=== PATIENT | female | born 1980 | race African-American/Black ===

== ENCOUNTER 2021-07-24 12:52 | Emergency (ER) | payer OTHER, SELFPAY ==
[2021-07-24] VITALS (55 sets, daily range): BP systolic 116–180; BP diastolic 73–117; PULSE 40–103; RESP 9–34; TEMP 36.8–37.1; O2SAT 91–100
--- NOTE | 2021-07-24 13:15 | RT.EKG_ITS ---
APPROVED REPORT Exam: Resting ECG Reason for Exam: dizzy Patient Location: E HR:72 bpm ECG Measurements Heart Rate 72 AXIS LA 146 P 45 QRSd 84 QRS 28 QT 366 T 24 QTc 400 Conclusion Sinus rhythm...normal P axis, V-rate 60- 99 Low voltage, precordial leads...precordial leads <1.0mV
[2021-07-24] MEDS: Normal Saline 1,000 ML 1000 ML IV (14:02)
[2021-07-24 14:21] LABS: Abs Immature Grans 0.01 10^3/uL (0.0-0.06); Absolute Basophil Count 0.01 10^3/uL (0.0-0.2); Absolute Lymphocyte Count 1.31 10^3/uL (1.2-3.4); Absolute Monocyte Count 0.26 10^3/uL (0.1-0.8); Absolute Neutrophil Count 3.98 10^3/uL (1.2-6.7); Basophils % 0.2; HCT 38.8 % (36.0-46.0); HGB 12.3 g/dL (11.2-15.7); Immature Grans % 0.2; Lymphocytes % 23.5; MCH 26.2 pg (27.0-33.0); MCHC 31.7 % (32.0-36.0); MCV 82.6 fL (80-95); MPV 10.6 fL (8.0-11.0); Monocytes % 4.7; Neutrophils % 71.4; Nucleated RBC 0 %; Platelet Count 318 10^3/uL (130-400); RDW 13.9 % (11.7-14.6); RDW-SD 41.7 fL; WBC 5.57 10^3/uL (4.4-10.8)
[2021-07-24 14:28] LABS: Bilirubin Negative (Negative); Blood Large (Negative); Clarity Cloudy (Clear); Glucose Negative (Negative); Ketones Negative (Negative); Leukocyte Esterase Negative (Negative); Nitrite Negative (Negative); Specific Gravity 1.025 (1.005-1.025); Urobilinogen 0.2 EU/dL (Up TO 0.2); pH 5.5 (5-8)
[2021-07-24 14:36] LABS: PTT Activated 22.2 sec (21.0-27.5); Prothrombin Time 10.3 sec (9.3-11.0)
--- NOTE | 2021-07-24 14:36 | ED.GENADUL_ITS ---
Discharge Plan Disposition Patient Disposition: AGAINST MEDICAL ADVICE Condition: Stable Discharge Details Clinical Impression: Syncope Primary Care Provider: [facility] Provider: Libia Monzon Home Meds and New Rx's Prescriptions: Continued quetiapine [Seroquel] 300 mg Tablet 300 mg PO BID RF: 0 oxcarbazepine 300 mg Tablet 600 mg PO BID RF: 0 buspirone 10 mg Tablet PO DAILY RF: 0 escitalopram oxalate 20 mg Tablet 20 mg PO DAILY RF: 0 cyclobenzaprine 5 mg Tablet 5 mg PO PRN PRNRF: 0 duloxetine [Cymbalta] 20 mg Capsule,Delayed Release(Dr/Ec) 20 mg PO DAILY RF: 0 Discharge Instructions Instructions: Syncope (ED) Additional Instructions: You are leaving against our medical recommendation, please know that you are further deterioration and even Please do not operate your vehicle until you are reevaluated by your doctor or another emergency room Discharge Data Discharge Date/Time-TO BE ENTERED AT DEPARTURE: 07/24/21 21:27 Medical Decision Making <HUNTER Correa - Last Filed: 07/25/21 16:18> 41-year-old female with past medical history of anxiety, depression, anemia, asthma, fibromyalgia, presenting to the ER today for evaluation reporting diffuse body pain consistent with her fibromyalgia and syncopal episodes today x3. Clinically she appears well, nontoxic, hemodynamically stable and neurologically intact she denies any headache. I see no clear indication for emergent CT imaging of the brain. Given her presentation, will obtain IV access and obtain a cardiac work-up including a D-dimer. Will hydrate with 1 L IV fluid and if her chemistries are unremarkable will provide IV Toradol and Norflex. Given her syncopal episodes, we discussed her ER course including observation and at minimum a delta troponin. Patient may require treatment based upon her laboratory findings. Given her syncope time 3 and weakness, she may require admission if she continues to be symptomatic otherwise she may require very close outpatient follow-up. Initial laboratory values do not reveal any obvious emergent process. Patient given IV Norflex and Toradol. Patient is agreeable to awaiting a delta troponin. Patient remained hemodynamically stable. Patient states that when she stood for the chest x-ray she did feel some generalized weakness. Patient also tells me that she is scheduled to be seen by a pain specialist next month for her ongoing chronic pain. Patient reporting only minimal improvement after the IV Norflex and Toradol. Patient will be given another liter of IV fluid. Imaging Data Radiologic Study: Attestation: I personally reviewed and interpreted this imaging study as follows: Imaging: X-Ray Radiologist's impression: EXAM XR CHEST 2V PA LATERAL CLINICAL HISTORY syncope TECHNIQUE 2D digital imaging was performed of the chest. [Two] images were obtained. [PA and lateral][][] views were obtained. COMPARISON [No exams were available for comparison] [] FINDINGS MEDIASTINUM: [Normal.] [] HEART: [Normal.] [] PULMONARY VASCULATURE: [Normal.] [] LUNGS: [Clear.] [] PLEURAL SPACE: [No pleural effusion or pneumothorax.] [] BONE:[Within normal limits for the patient's age.] [] OTHER FINDINGS:[Normal.] [] IMPRESSION [No acute pulmonary findings. Lab Data Lab results reviewed: Yes I reviewed the patient's lab results. Labs: Laboratory Tests Range/Units 07/24/21 07/24/21 07/24/21 13:57 13:57 13:57 WBC (4.4-10.8) 10^3/uL 5.57 RBC (3.93-5.22) 10^6/uL 4.70 Hgb (11.2-15.7) g/dL 12.3 Hct (36.0-46.0) % 38.8 MCV (80-95) fL 82.6 MCH (27.0-33.0) pg 26.2 L MCHC (32.0-36.0) % 31.7 L RDW (11.7-14.6) % 13.9 Plt Count (130-400) 10^3/uL 318 MPV (8.0-11.0) fL 10.6 Immature Gran % 0.2 Neutrophils % 71.4 Lymphocytes % 23.5 Monocytes % 4.7 Eosinophils % 0.0 Basophils % 0.2 Nucleated RBC % % 0 Absolute Neutrophils (1.2-6.7) 10^3/uL 3.98 Absolute Lymphocytes (1.2-3.4) 10^3/uL 1.31 Absolute Monocytes (0.1-0.8) 10^3/uL 0.26 Absolute Eosinophils (0.0-0.7) 10^3/uL 0.00 Absolute Basophils (0.0-0.2) 10^3/uL 0.01 PT (9.3-11.0) sec 10.3 INR (0.9-1.1) 1.0 APTT (21.0-27.5) sec 22.2 D-Dimer (<500) ng/mlFEU 201 Sodium (136-145) mmol/L 142 Potassium (3.5-5.1) mmol/L 3.5 Chloride (98-107) mmol/L 107 Carbon Dioxide (21.0-32.0) mmol/L 23.6 Anion Gap (3-11) mmol/L 11.4 H BUN (7-18) mg/dL 9 Creatinine (0.55-1.02) mg/dL 1.3 H Estimated GFR/1.73 m2 (mL/min/1.73m2) 45.14 Glucose (74-106) mg/dL 106 Calcium (8.5-10.1) mg/dL 9.3 Magnesium (1.8-2.4) mg/dL 2.2 Total Bilirubin (0.2-1.0) mg/dL 0.2 AST (15-37) U/L 7 L ALT (14-59) U/L 13 L Alkaline Phosphatase (46-116) U/L 60 Troponin I (<0.06) ng/mL < 0.05 Total Protein (6.4-8.2) g/dL 7.7 Albumin (3.4-5.0) g/dL 3.8 TSH (0.36-3.74) uIU/mL 0.78 Urine Color (Yellow) Urine Clarity (Clear) Urine pH (5-8) Ur Specific [place] (1.005-1.025) Urine Protein (Negative) mg/dL Urine Ketones (Negative) mg/dL Urine Blood (Negative) Urine Nitrite (Negative) Urine Bilirubin (Negative) Urine Urobilinogen (Up TO 0.2) EU/dL Ur Leukocyte Esterase (Negative) Urine RBC (0-2) HPF Urine WBC (0-5) HPF Ur Epithelial Cells (Negative) HPF Urine Crystals (Negative) HPF Urine Bacteria (Negative) HPF Urine Casts (Negative) LPF Urine Mucus (Negative) Urine Other (Negative) Ur Culture Indicated? Urine Glucose (Negative) mg/dL Urine Opiates Screen (Negative) Urine Methadone Screen (Negative) Ur Barbiturates Screen (Negative) Ur Tricyclics Screen (Negative) Ur Amphetamines Screen (Negative) U Benzodiazepines Scrn (Negative) Urine Cocaine Screen (Negative) Ur THC Screen (Negative) Range/Units 07/24/21 07/24/21 14:10 14:10 WBC (4.4-10.8) 10^3/uL RBC (3.93-5.22) 10^6/uL Hgb (11.2-15.7) g/dL Hct (36.0-46.0) % MCV (80-95) fL MCH (27.0-33.0) pg MCHC (32.0-36.0) % RDW (11.7-14.6) % Plt Count (130-400) 10^3/uL MPV (8.0-11.0) fL Immature Gran % Neutrophils % Lymphocytes % Monocytes % Eosinophils % Basophils % Nucleated RBC % % Absolute Neutrophils (1.2-6.7) 10^3/uL Absolute Lymphocytes (1.2-3.4) 10^3/uL Absolute Monocytes (0.1-0.8) 10^3/uL Absolute Eosinophils (0.0-0.7) 10^3/uL Absolute Basophils (0.0-0.2) 10^3/uL PT (9.3-11.0) sec INR (0.9-1.1) APTT (21.0-27.5) sec D-Dimer (<500) ng/mlFEU Sodium (136-145) mmol/L Potassium (3.5-5.1) mmol/L Chloride (98-107) mmol/L Carbon Dioxide (21.0-32.0) mmol/L Anion Gap (3-11) mmol/L BUN (7-18) mg/dL Creatinine (0.55-1.02) mg/dL Estimated GFR/1.73 m2 (mL/min/1.73m2) Glucose (74-106) mg/dL Calcium (8.5-10.1) mg/dL Magnesium (1.8-2.4) mg/dL Total Bilirubin (0.2-1.0) mg/dL AST (15-37) U/L ALT (14-59) U/L Alkaline Phosphatase (46-116) U/L Troponin I (<0.06) ng/mL Total Protein (6.4-8.2) g/dL Albumin (3.4-5.0) g/dL TSH (0.36-3.74) uIU/mL Urine Color (Yellow) Yellow Urine Clarity (Clear) Cloudy Urine pH (5-8) 5.5 Ur Specific [place] (1.005-1.025) 1.025 Urine Protein (Negative) mg/dL Negative Urine Ketones (Negative) mg/dL Negative Urine Blood (Negative) Large H Urine Nitrite (Negative) Negative Urine Bilirubin (Negative) Negative Urine Urobilinogen (Up TO 0.2) EU/dL 0.2 Ur Leukocyte Esterase (Negative) Negative Urine RBC (0-2) HPF >50 H Urine WBC (0-5) HPF 0-2 Ur Epithelial Cells (Negative) HPF Moderate Urine Crystals (Negative) HPF Negative Urine Bacteria (Negative) HPF Rare Urine Casts (Negative) LPF Negative Urine Mucus (Negative) Negative Urine Other (Negative) Negative Ur Culture Indicated? No Urine Glucose (Negative) mg/dL Negative Urine Opiates Screen (Negative) Negative Urine Methadone Screen (Negative) Negative Ur Barbiturates Screen (Negative) Negative Ur Tricyclics Screen (Negative) Negative Ur Amphetamines Screen (Negative) Negative U Benzodiazepines Scrn (Negative) Negative Urine Cocaine Screen (Negative) Negative Ur THC Screen (Negative) Positive A ECG Data Attestation: I personally reviewed and interpreted this ECG (s) as follows: Interpretation: Please see official report by Dr. Boo. Sinus rhythm, ventricular rate 72. No STEMI <HUNTER Hoyt - Last Filed: 07/24/21 23:10> Patient care was transitioned to wv by Andrei Gracia physician visitor information assistant at 1600 Patient was assessed, calm, cooperative, slightly bradycardic but asymptomatic with this finding I reviewed her diagnostic labs that do not show acute abnormality including a negative D-dimer and chemistry panel, negative , negative chest x-ray, EKG without QTC prolongation I did perform orthostatics which were negative although patient was symptomatic standing Concern regarding her presentation, she has had 3 episodes of syncope in a short period of time and she is still symptomatic, my recommendation is to admit patient for observation Unfortunately patient is declining admission at this time after initially stating that she was willing to be observed She is aware that she is leaving against our medical recommendation and is at risk for further deterioration and even She did not have any ominous findings on her telemetry monitoring throughout this encounter She is alert, oriented, of decisional capacity throughout the entirety of this assessment Discharged home in the care of her with medical recommendation She [facility] and be reassessed in the emergency room should she have persistent or worsening symptom HPI <HUNTER Correa - Last Filed: 07/25/21 16:18> General Mode of arrival: ambulatory . Date/Time Provider Initiated Documentation: 07/24/21 13:13 . Limitations to Documentation: no limitations . Information obtained by: patient . HPI Narrative: This is a 41-year-old female, past medical history of asthma, anemia, depression, fibromyalgia, recently moved here from [place], no local primary care provider yet, presenting to the ER for evaluation of diffuse body pain and syncopal episode today x3. Patient states last night overall she felt warm. This morning and had generalized weakness. While in the shower this morning she states she had a syncopal episode, but did not sustain any injuries. Her picked her up and brought her to the bed where she states that she had another syncopal episode. And then later while she was trying to get ready to go to work getting her close on had a third syncopal episode. Unsure exactly how long any of these lasted for. She denies recent illness or trauma, headache, visual changes, neck pain, chest pain, shortness of breath abdominal pain, nausea, vomiting, diarrhea, dysuria, numbness, tingling, focal weakness. Has not taken any medications for her symptoms. Patient does state that she ran out of her Cymbalta approximately 3 weeks ago. She also has run out of her Flexeril that she typically takes for her fibromyalgia. She also tells me that she only takes her Seroquel very sporadically. She is scheduled to be seen by a pain specialist next month for her ongoing body pain and fibromyalgia. Related Data Home Medications Medication Instructions Recorded Confirmed buspirone mg PO DAILY 07/24/21 cyclobenzaprine 5 mg PO PRN PRN 07/24/21 07/24/21 duloxetine [Cymbalta] 20 mg PO DAILY 07/24/21 07/24/21 escitalopram oxalate 20 mg PO DAILY 07/24/21 07/24/21 oxcarbazepine 600 mg PO BID 07/24/21 07/24/21 quetiapine [Seroquel] 300 mg PO BID 07/24/21 07/24/21 Allergies Allergy/AdvReac Type Severity Reaction Status Date / Time No Known Allergies Allergy Unverified 07/24/21 13:09 General Stated Complaint: Dizzy/Sync RADHA: 3 Review of Systems <HUNTER Correa - Last Filed: 07/25/21 16:18> Constitutional Constitutional: Denies fatigue, Denies fever(s) and Denies headache(s) Eyes Eyes: Denies change in vision ENT Ears, Nose, Mouth, and Throat: Denies headache(s) and Denies neck pain Cardiovascular Cardiovascular: Denies chest pain and Denies dyspnea Respiratory Respiratory: Denies dyspnea Gastrointestinal Gastrointestinal: Denies abdominal pain, Denies nausea and Denies vomiting Genitourinary Genitourinary: Denies dysuria Musculoskeletal Musculoskeletal: Reports back pain, Denies neck pain, Denies numbness and Denies tingling Integumentary/Breasts Skin/Breast: Denies rash Neurologic Neurologic: Denies headache(s), Denies numbness, Denies tingling and Reports weakness (Generalized) Endocrine Endocrine: Denies fatigue PFSH <HUNTER Correa - Last Filed: 07/25/21 16:18> Active Problem List (Updated 07/24/21 @ 21:00 by HUNTER Hoyt) Syncope (Chronic) Social History Smoking/Tobacco Use Status: Never Smoking risk assessment performed?: Yes Drug use: Occasionally Substance use type: marijuana Do you feel safe at home: Yes Do you feel safe in your relationship?: Yes Exam <HUNTER Correa - Last Filed: 07/25/21 16:18> Const General: cooperative, healthy appearing, comfortable and no acute distress Orientation: alert, awake and oriented x3 HENMT Head: normal to inspection, normocephalic and atraumatic Mouth: moist mucous membranes abnormal (Slightly dry) Throat: posterior oropharynx normal Eyes General: appearance normal, both eyes and all related structures Alignment and Position: alignment normal Periorbital: periorbital findings normal Eyelids: eyelids normal Conjunctivae: conjunctivae normal Sclera: sclerae normal Cornea: corneas normal Pupils: PERRL EOM: EOM intact bilaterally Direct ophthalmoscopy: normal light reflex Neck Neck: normal visual inspection, full ROM, no meningeal signs, trachea midline and supple Resp Effort & Inspection: normal respiratory effort and able to speak in complete sentences Auscultation: clear to auscultation bilaterally Cardio Rate: regular rate Rhythm: regular rhythm GI Palpation: soft and nontender Back/Spine/Pelvis Back: no CVA tenderness and back tenderness (Diffuse, mild. No spasm) Skin General skin exam: no rashes or lesions noted Neuro General: patient alert, patient awake, patient oriented x3, moves all extremities and no focal motor deficits Cognition: normal cognition Speech: speech normal Motor: muscle tone normal throughout Sensory Exam: no sensory deficits noted Extrem General: normal to inspection, full ROM, capillary refill normal, no pedal edema, no calf tenderness and normal gait Psych Appearance: grossly normal Mental Status: mental status grossly normal Course <HUNTER Correa - Last Filed: 07/25/21 16:18> Vital Signs Vital signs: Vital Signs Temperature 37.1 C 07/24/21 13:04 Pulse 85 07/24/21 13:04 Respiratory Rate 18 07/24/21 13:04 Blood Pressure 116/73 07/24/21 13:04 Pulse Oximetry 99 07/24/21 13:04 Temperature 37.1 C 07/24/21 13:04 Temperature Source Temporal Artery Scan 07/24/21 13:04 Pulse 69 07/24/21 14:16 Pulse 74 07/24/21 14:16 Respiratory Rate 27 H 07/24/21 14:16 Respiratory Effort 07/24/21 13:24 Respiratory Depth Normal 07/24/21 13:24 Respiratory Pattern Normal 07/24/21 13:24 Blood Pressure 133/99 H 07/24/21 14:16 Blood Pressure Mean 106 07/24/21 14:16 Blood Pressure Position Sitting 07/24/21 13:04 Pulse Oximetry 96 07/24/21 14:01 Oxygen Delivery Method Room Air 07/24/21 13:04 Oxygen Flow Rate 0 07/24/21 13:04 Pain Level 9 07/24/21 13:04 Lab/Test Results Lab/Test Results: Laboratory Tests Range/Units 07/24/21 07/24/21 13:57 14:10 WBC (4.4-10.8) 10^3/uL 5.57 RBC (3.93-5.22) 10^6/uL 4.70 Hgb (11.2-15.7) g/dL 12.3 Hct (36.0-46.0) % 38.8 MCV (80-95) fL 82.6 MCH (27.0-33.0) pg 26.2 L MCHC (32.0-36.0) % 31.7 L RDW (11.7-14.6) % 13.9 Plt Count (130-400) 10^3/uL 318 MPV (8.0-11.0) fL 10.6 Immature Gran % 0.2 Neutrophils % 71.4 Lymphocytes % 23.5 Monocytes % 4.7 Eosinophils % 0.0 Basophils % 0.2 Nucleated RBC % % 0 Absolute Neutrophils (1.2-6.7) 10^3/uL 3.98 Absolute Lymphocytes (1.2-3.4) 10^3/uL 1.31 Absolute Monocytes (0.1-0.8) 10^3/uL 0.26 Absolute Eosinophils (0.0-0.7) 10^3/uL 0.00 Absolute Basophils (0.0-0.2) 10^3/uL 0.01 Urine Color (Yellow) Yellow Urine Clarity (Clear) Cloudy Urine pH (5-8) 5.5 Ur Specific [place] (1.005-1.025) 1.025 Urine Protein (Negative) mg/dL Negative Urine Ketones (Negative) mg/dL Negative Urine Blood (Negative) Large H Urine Nitrite (Negative) Negative Urine Bilirubin (Negative) Negative Urine Urobilinogen (Up TO 0.2) EU/dL 0.2 Ur Leukocyte Esterase (Negative) Negative Urine Glucose (Negative) mg/dL Negative POC- Test(urine) Negative Sign Out <HUNTER Correa - Last Filed: 07/25/21 16:18> Sign Out Data: Sign Out Comment: 41-year-old female reporting generalized weakness and syncopal episode x3 today. Also reports chronic fibromyalgia pain. She has run out of her Flexeril. Patient given IV Flexeril and Toradol, receiving IV fluids. Work-up thus far unremarkable for obvious emergent process. Awaiting delta troponin. Scheduled to be seen by pain clinic next month Last updated by Andrei Gracia PA at 07/24/21 16:00
[2021-07-24 14:38] LABS: *AMPHETAMINES SCREEN URINE Negative (Negative); *BARBITURATES SCREEN URINE Negative (Negative); *BENZODIAZEPINES SCREEN URINE Negative (Negative); Bacteria Rare HPF (Negative); C & S Indicated? No; Cannabinoids THC Positive (Negative); Casts Negative LPF (Negative); Cocaine Screen,Urine Negative (Negative); Crystals Negative HPF (Negative); Epithelial Cells Moderate HPF (Negative); METHADONE URINE SCREEN Negative (Negative); Mucus Negative (Negative); OPIATES URINE SCREEN Negative (Negative); Other Cells Negative (Negative); RBC >50 HPF (0-2); Tricyclic Antidepressants Negative (Negative); WBC 0-2 HPF (0-5)
[2021-07-24 14:46] LABS: ALT 13 U/L (14-59); AST 7 U/L (15-37); Albumin 3.8 g/dL (3.4-5.0); Alkaline Phosphatase 60 U/L (46-116); Anion Gap 11.4 mmol/L (3-11); BUN 9 mg/dL (7-18); Bilirubin, Total 0.2 mg/dL (0.2-1.0); CO2 23.6 mmol/L (21.0-32.0); CREATININE 1.3 mg/dL (0.55-1.02); Calcium 9.3 mg/dL (8.5-10.1); Chloride 107 mmol/L (98-107); Estimated GFR 45.14 (mL/min/1.73m2); Glucose 106 mg/dL (74-106); Magnesium 2.2 mg/dL (1.8-2.4); Potassium 3.5 mmol/L (3.5-5.1); Sodium 142 mmol/L (136-145); TSH 0.78 uIU/mL (0.36-3.74); Total Protein 7.7 g/dL (6.4-8.2)
[2021-07-24 14:47] LABS: Troponin I < 0.05 ng/mL (<0.06)
[2021-07-24 14:54] LABS: D-Dimer 201 ng/mlFEU (<500)
--- NOTE | 2021-07-24 15:11 | DI.RAD_ITS ---
Exam(s) XR CHEST 2V PA LATERAL EXAM: XR CHEST 2V PA LATERAL CLINICAL HISTORY: syncope TECHNIQUE: 2D digital imaging was performed of the chest. Two images were obtained. PA and lateral views were obtained. COMPARISON: No exams were available for comparison FINDINGS: MEDIASTINUM: Normal. HEART: Normal. PULMONARY VASCULATURE: Normal. LUNGS: Clear. PLEURAL SPACE: No pleural effusion or pneumothorax. BONE:Within normal limits for the patient's age. OTHER FINDINGS:Normal. IMPRESSION: No acute pulmonary findings. DATA REPOSITORY: RADIATION DOSE DELIVERED:
[2021-07-24] MEDS: Ketorolac 30 MG/ML VIAL IVP (15:15)
[2021-07-24] MEDS: Orphenadrine 60 MG/2 ML VIAL IVP (15:15)
[2021-07-24] MEDS: Lactated Ringers 1,000 ML 1000 ML IV (15:42)
[2021-07-24 17:55] LABS: Creatine Kinase 113 U/L (26-192)
[2021-07-24] MEDS: ACETAMINOPHEN 1,000 MG/100 ML BTL 400 MG IVPB (18:13)
[2021-07-24 18:38] LABS: Source Nasal/Nares
[2021-07-24 19:18] LABS: COVID-19 PCR Negative (Negative)
[2021-07-24] MEDS: oxyCODONE 5 MG TAB PO (20:33)
[2021-07-24 20:35] LABS: Troponin I < 0.05 ng/mL (<0.06)
== END 2021-07-24 21:27 | disposition left against medical advice (07) ==
PROVIDERS: Physician Assistant; Emergency Provider Physician Assistant
DX: R55 Syncope and collapse (principal); R53.1 Weakness; Z53.29 Procedure and treatment not carried out because of patient's decision for other reasons; Z20.822 Contact with and (suspected) exposure to COVID-19; Z03.818 Encounter for observation for suspected exposure to other biological agents ruled out
CPT/HCPCS: 36415; 80053; 80307; 81025; 82550; 87635; 93005; 96361; 96374; 96375; 99285; J2360; 71046; 81003; 81015; 83735; 84443; 84484; 85025; 85379; 85610; 85730; 93010; J0131; J1885

== ENCOUNTER 2022-04-16 12:09 | Emergency (ER) | payer OTHER, SELFPAY ==
[2022-04-16 12:27] VITALS: BP 115/77; PULSE 74; RESP 18; TEMP 37.4; O2SAT 97
[2022-04-16 12:32] VITALS: RESP 18
--- NOTE | 2022-04-16 12:45 | W.ED.GENAD ---
Discharge Plan Disposition Patient Disposition: HOME Condition: Fair Discharge Details Clinical Impression: COVID Primary Care Provider: [facility] ED Provider: Duy Ragsdale Home Meds and New Rx's Prescriptions: New benzonatate 200 mg capsule 200 mg PO TID PRN (Reason: cough) Qty: 30 0RF Continued albuterol 90 mcg/actuation Aerosol 90 mcg INHALATION PRN PRN quetiapine [Seroquel] 300 mg Tablet 300 mg PO BID oxcarbazepine 300 mg Tablet 600 mg PO BID buspirone 10 mg Tablet PO DAILY escitalopram oxalate 20 mg Tablet 20 mg PO DAILY duloxetine [Cymbalta] 20 mg Capsule,Delayed Release(Dr/Ec) 20 mg PO DAILY Discharge Instructions Instructions: COVID-19 (Coronavirus Disease 2019) (ED) Additional Instructions: Please continue to stay well-hydrated and get plenty of rest during your viral illness. You may continue to take [id number] medications as directed on packaging along with the prescribed cough medication. As discussed if you develop any new or significant worsening of symptoms feel free to return to the emergency department otherwise follow-up with your primary care provider if not improving in the next week. Stand Alone Forms: Work Release Referrals: [facility] [Primary Care Provider] - 1 week (If not improving) Discharge Data Discharge Date/Time-TO BE ENTERED AT DEPARTURE: 04/16/22 12:53 Medical Decision Making Patient presenting to the emergency department for chief complaint of COVID-like symptoms. She states her recently tested positive for COVID and then within 24 to 48 hours she started developing symptoms. Patient also did take a COVID test and now has tested that is well. Patient's main complaint is dry cough but has significant systemic symptoms consistent with viral illness. Review of vital signs show no hypoxia stable blood pressure no tachycardia, physical exam is unremarkable except for noted significant dry cough but otherwise clear lung sounds and no worrisome findings. Patient does state past medical history of mild asthma with intermittent inhaler use. Did discuss potential antiviral therapy of Paxlovid and risk versus benefit of this medication. After thorough discussion of medication patient declined the medication at this time. Will prescribe patient Tessalon Perles and give patient work note for remainder of week off. Discussed conservative management of symptoms along with return and follow-up precautions. After discussion of diagnosis and plan of care patient has no further needs, questions, or concerns and states clear understanding to return to the emergency department for any worsening symptoms. This documentation was generated using [employer] dictation system, please disregard any oddities of phrase or misspellings. HPI General Mode of arrival: ambulatory. Date/Time Provider Initiated Documentation: 04/16/22 12:15. Limitations to Documentation: no limitations. Information obtained by: patient and RN notes reviewed. History of Present Illness 41 year old F presents to the emergency department with the chief complaint of Covid + with symptoms, described as severe, with intensity rated at 9. Quality is described as aching (body aches), Patient started experiencing this day(s) (3) and it has been constant. No relieving factors improve symptom(s), No exacerbating factors reported . Patient notes cough, diaphoresis, fever/chills, headaches, loss of appetite and malaise; denies chest pain, rash and shortness of breath. Patient did receive the following treatments prior to arrival, NSAID Related Data Home Medications Medication Instructions Recorded Confirmed buspirone 10 mg tablet mg PO DAILY 07/24/21 duloxetine 20 mg capsule,delayed 20 mg PO DAILY 07/24/21 04/16/22 release (Cymbalta) escitalopram oxalate 20 mg tablet 20 mg PO DAILY 07/24/21 04/16/22 oxcarbazepine 300 mg tablet 600 mg PO BID 07/24/21 04/16/22 quetiapine 300 mg tablet (Seroquel) 300 mg PO BID 07/24/21 04/16/22 albuterol 90 mcg/actuation aerosol 90 mcg inhalation PRN PRN 04/16/22 04/16/22 inhaler benzonatate 200 mg capsule 200 mg PO TID PRN cough #30 caps 04/16/22 Previous Rx's Medication Instructions Recorded benzonatate 200 mg capsule 200 mg PO TID PRN cough #30 caps 04/16/22 Allergies Allergy/AdvReac Type Severity Reaction Status Date / Time No Known Allergies Allergy Unverified 04/16/22 12:31 General Stated Complaint: GenMedical RADHA: 4 Review of Systems Constitutional Constitutional: Reports body ache(s), Reports chills, Reports fever(s), Reports headache(s), Reports malaise and Reports poor appetite Eyes Eyes: Denies eye discharge ENT Ears, Nose, Mouth, and Throat: Reports as per HPI, Denies ear discharge, Denies otalgia, Reports headache(s), Reports nasal congestion, Reports nasal discharge, Denies neck pain, Reports sore throat and Denies throat swelling Cardiovascular Cardiovascular: Denies chest pain and Denies dyspnea Respiratory Respiratory: Reports cough, Reports pain with cough and Denies dyspnea Gastrointestinal Gastrointestinal: Denies abdominal pain, Reports diarrhea, Denies nausea and Denies vomiting Musculoskeletal Musculoskeletal: Reports myalgias, Denies joint swelling and Denies neck pain Integumentary/Breasts Skin/Breast: Denies rash Neurologic Neurologic: Reports headache(s) Allergic/Immunologic Allergic/Immunologic: Denies throat swelling PFSH All Active Problems Syncope (Chronic) COVID (Acute) Social History Smoking/Tobacco Use Status: Never Smoking risk assessment performed?: Yes Drug use: Never Substance use type: does not use Do you feel safe at home: Yes Do you feel safe in your relationship?: Yes Exam Const General: cooperative, not diaphoretic and ill appearing acutely Orientation: alert, awake and oriented x3 HENMT Head: normal to inspection, normocephalic and atraumatic Ears: hearing grossly normal bilaterally and TM's normal bilaterally General nose exam: external nose normal Face and sinus: no erythema Mouth: oral mucosae normal, no drooling, no muffled voice and no trismus Throat: posterior oropharynx normal Neck Neck: normal visual inspection, full ROM, no lymphadenopathy, no meningeal signs, trachea midline and supple Resp Effort & Inspection: normal respiratory effort, able to speak in complete sentences and cough Quality of cough: dry Auscultation: clear to auscultation bilaterally Cardio Rate: regular rate Rhythm: regular rhythm Heart Sounds: S1 normal, S2 normal, normal S1 and S2, no click, no gallops, no murmurs and no rubs Skin General skin exam: no rashes or lesions noted and dry skin (warm) Neuro General: patient alert, patient awake, patient oriented x3, gait normal and moves all extremities Cognition: normal cognition Speech: speech normal Course Vital Signs Vital signs: Vital Signs Temperature 37.4 C 04/16/22 12:27 Pulse 74 04/16/22 12:27 Respiratory Rate 18 08/30/22 12:27 Blood Pressure 115/77 04/16/22 12:27 Pulse Oximetry 97 04/16/22 12:27 Temperature 37.4 C 04/16/22 12:27 Temperature Source Temporal Artery Scan 04/16/22 12:27 Pulse 74 04/16/22 12:27 Respiratory Rate 18 04/16/22 12:32 Respiratory Effort 04/16/22 12:32 Respiratory Depth Normal 04/16/22 12:32 Respiratory Pattern Normal 04/16/22 12:32 Blood Pressure 115/77 04/16/22 12:27 Blood Pressure Position Sitting 04/16/22 12:27 Pulse Oximetry 97 04/16/22 12:27 Oxygen Delivery Method Room Air 04/16/22 12:27 Oxygen Flow Rate 0 04/16/22 12:27 Pain Level 10 04/16/22 12:27
== END 2022-04-16 12:53 | disposition home or self-care (01) ==
PROVIDERS: Emergency Provider Nurse Practitioner Family
DX: U07.1 COVID-19 (principal); J45.909 Unspecified asthma, uncomplicated
CPT/HCPCS: 99283; 99284